=== PATIENT | female | born 1985 | race Two or more races ===

== ENCOUNTER 2018-04-16 13:15 | Inpatient (IN) | payer MEDICAID ==
[~2018-04-16] VITALS: Ht 157.5 cm; Wt 63.1 kg
[2018-04-16 13:46] LABS: Urine Bacteria FEW /hpf (None Seen); Urine Blood Negative /uL (Negative); Urine Mucus MODERATE (None Seen); Urine Specific Gravity 1.033 (1.001-1.035); Urine WBC 8 /hpf (0 - 5)
[2018-04-16 14:00] LABS: Basophils # (auto) 0 uL; Basophils % (auto) 0.2 % (0.0-2.0); Eosinophils # (auto) 0 uL; Eosinophils % (auto) 0.2 % (0.0-7.0); Hematocrit 42.6 % (36.0-46.0); Hemoglobin 14.5 g/dL (12.2-16.2); Lymphocytes % (auto) 20.7 % (10.0-50.0); Mean Corpuscular Hemoglobin 28.1 pg (28.0-32.0); Mean Corpuscular Volume 82.5 fL (80.0-100.0); Monocytes # (auto) 0.4 uL; Monocytes % (auto) 3.9 % (0.0-12.0); Neutrophils # (auto) 7.4 uL; Nucleated Red Blood Cells % 0.1 %; Platelet Count (auto) 258 10^3/uL (140-450); Red Blood Cells 5.16 10^6/uL (4.0-5.20); Red Cell Distribution Width 13.5 % (11.8-14.3); White Blood Cell 9.9 10^3/uL (4.4-10.8)
[2018-04-16 14:21] LABS: Albumin 3.6 g/dL (3.4-5.0); BUN/Creatinine Ratio 27.5; Bilirubin, Total 0.8 mg/dL (0.2-1.0); Calcium 8.6 mg/dL (8.5-10.1); Potassium 3.7 mmol/L (3.5-5.1); Total Protein 7.6 g/dL (6.4-8.2)
[2018-04-16 19:53] LABS: Amylase 41 U/L (25-115); Lipase 204 U/L (73-393)
[2018-04-16] MEDS ORDERED: SODIUM CHLORIDE 0.9% 1,000 ML IV ONE (20:00)
[2018-04-16] MEDS ORDERED: cefTRIAXone 1GM/10ml IVPUSH 10 ML IV ONE (21:15)
[2018-04-16 21:37] LABS: INR 1.02 (0.9-1.15); Partial Thromboplastin Time 28.4 sec (23.78-33.04); Prothrombin Time 10.9 sec (9.27-12.13)
[2018-04-16] MEDS ORDERED: MORPHINE SULFATE 4 MG/ML SYR/VIAL IV PRN (21:45)
[2018-04-16] MEDS ORDERED: ACETAMINOPHEN 325 MG TAB PO PRN (21:45)
[2018-04-16] MEDS ORDERED: ONDANSETRON HCL 4 MG/2 ML VIAL IV PRN (21:45)
[2018-04-16] MEDS ORDERED: TEMAZEPAM 15 MG CAP PO PRN (21:45)
[2018-04-16] MEDS: FAMOTIDINE 20 MG TAB PO SCH (22:43)
[2018-04-16 22:47] VITALS: BP 123/67
[2018-04-16 23:00] VITALS: BP 123/67
[2018-04-17] MEDS ORDERED: METH10TA6 PO (03:11)
[2018-04-17 05:03] VITALS: BP 103/54
[2018-04-17] MEDS: METHIMAZOLE 5 MG TAB PO SCH ×3 (06:33→22:13)
[2018-04-17 06:46] LABS: Basophils # (auto) 0 uL; Basophils % (auto) 0.2 % (0.0-2.0); Eosinophils # (auto) 0.1 uL; Eosinophils % (auto) 1.6 % (0.0-7.0); Hematocrit 39.6 % (36.0-46.0); Hemoglobin 13.6 g/dL (12.2-16.2); Lymphocytes # (auto) 2.7 uL; Lymphocytes % (auto) 44.5 % (10.0-50.0); Mean Corpuscular Hemoglobin 28.4 pg (28.0-32.0); Mean Corpuscular Hgb Conc. 34.3 g/dL (32.0-36.0); Monocytes # (auto) 0.7 uL; Monocytes % (auto) 10.5 % (0.0-12.0); Neutrophils # (auto) 2.7 uL; Neutrophils % (auto) 43.2 % (37.0-80.0); Nucleated Red Blood Cells % 0.1 %; Platelet Count (auto) 214 10^3/uL (140-450); Red Blood Cells 4.77 10^6/uL (4.0-5.20); Red Cell Distribution Width 13.6 % (11.8-14.3); White Blood Cell 6.2 10^3/uL (4.4-10.8)
[2018-04-17 07:02] LABS: Albumin 3.1 g/dL (3.4-5.0); Calcium 8.3 mg/dL (8.5-10.1); Potassium 3.6 mmol/L (3.5-5.1)
[2018-04-17 07:08] LABS: Bilirubin, Total 1.3 mg/dL (0.2-1.0); Total Protein 6.6 g/dL (6.4-8.2)
[2018-04-17 09:26] VITALS: BP 105/59
[2018-04-17] MEDS: ENOXAPARIN SOD 40 MG/0.4 ML SYRINGE SC SCH (10:00)
[2018-04-17] MEDS: FAMOTIDINE 20 MG TAB PO SCH ×2 (12:13→22:14)
[2018-04-17] MEDS: cefTRIAXone 1GM/10ml IVPUSH 10 ML IV SCH (12:13)
[2018-04-17 13:22] VITALS: BP 102/54
[2018-04-17 17:26] VITALS: BP 108/63
[2018-04-17 22:00] VITALS: BP 102/59
[2018-04-17] MEDS ORDERED: SOD CHL 0.9%/ KCL 20MEQ 1,000 ML IV SCH (22:00)
[2018-04-18] VITALS (54 sets, daily range): BP systolic 96–128; BP diastolic 53–87
[2018-04-18] MEDS: METHIMAZOLE 5 MG TAB PO SCH ×3 (05:54→22:36)
[2018-04-18] MEDS: cefTRIAXone 1GM/10ml IVPUSH 10 ML IV SCH (08:57)
[2018-04-18] MEDS ORDERED: ONDANSETRON HCL 4 MG/2 ML VIAL IV ONE (09:00)
[2018-04-18] MEDS ORDERED: LIDOCAINE 1% (LOCAL ANESTH.) PF 5ml SDV ONE (09:01)
[2018-04-18] MEDS ORDERED: SUCCINYLCHOLINE CHLORIDE 20 MG/ML 10ML VIAL IV ONE (09:01)
[2018-04-18] MEDS ORDERED: MIDAZOLAM HCL 1MG/1ML-2 ML VIAL ONE (09:02)
[2018-04-18] MEDS ORDERED: PROPOFOL 10 MG/ML 20 ML IV ONE (09:04)
[2018-04-18] MEDS ORDERED: fentaNYL CITRATE 100 MCG/2 ML VL ONE (09:12)
[2018-04-18] MEDS ORDERED: KETOROLAC TROMETH 30 MG/ML 1ML VIAL ONE (09:23)
[2018-04-18] MEDS ORDERED: ESMOLOL HCL 10 ML IV ONE (09:27)
[2018-04-18] MEDS ORDERED: LABETALOL HCL 5 MG/ML ML 20ML VIAL IV ONE (09:33)
[2018-04-18] MEDS ORDERED: HYDROCORTISONE SOD SUCC 100 MG/2ML INJ VIAL ONE (09:41)
[2018-04-18] MEDS ORDERED: NEOSTIGMINE 1 MG/ML INJ (10mg/10ML VIAL) ONE (09:47)
[2018-04-18] MEDS ORDERED: GLYCOPYRROLATE 0.2 MG/ML 1ML VIAL ONE (09:47)
[2018-04-18] MEDS: FAMOTIDINE 20 MG TAB PO SCH ×2 (10:00→22:36)
[2018-04-18] MEDS: ENOXAPARIN SOD 40 MG/0.4 ML SYRINGE SC SCH (10:00)
[2018-04-18] MEDS: MORPHINE SULFATE 4 MG/ML SYR/VIAL IV PRN ×4 (10:10→11:06)
[2018-04-18] MEDS ORDERED: ONDANSETRON HCL 4 MG/2 ML VIAL IV PRN (10:15)
[2018-04-18] MEDS: HYDROmorphone HCL 2 MG/ML VL IV PRN ×3 (14:15→23:52)
[2018-04-18] MEDS: ceFAZolin 1GM/100ML 100 ML IV SCH ×2 (14:20→22:37)
[2018-04-18 16:01] LABS: Basophils # (auto) 0 uL; Eosinophils # (auto) 0 uL; Hemoglobin 10.5 g/dL (12.2-16.2); Lymphocytes # (auto) 0.5 uL; Mean Corpuscular Hemoglobin 29.1 pg (28.0-32.0); Mean Corpuscular Hgb Conc. 34.8 g/dL (32.0-36.0); Mean Corpuscular Volume 83.6 fL (80.0-100.0); Monocytes # (auto) 0.1 uL; Monocytes % (auto) 1.4 % (0.0-12.0); Neutrophils # (auto) 9.3 uL; Neutrophils % (auto) 93.6 % (37.0-80.0); Platelet Count (auto) 249 10^3/uL (140-450); Red Blood Cells 3.59 10^6/uL (4.0-5.20); Red Cell Distribution Width 13.6 % (11.8-14.3)
[2018-04-18] MEDS: SOD CHL 0.45% 1,000 ML IV SCH (17:00)
[2018-04-18] MEDS: METOPROLOL TARTRATE 25 MG TAB PO SCH (20:59)
[2018-04-19] VITALS (76 sets, daily range): BP systolic 89–141; BP diastolic 38–78
[2018-04-19] MEDS: SOD CHL 0.45% 1,000 ML IV SCH ×5 (01:50→23:54)
[2018-04-19 02:13] LABS: Basophils # (auto) 0 uL; Basophils % (auto) 0.2 % (0.0-2.0); Eosinophils # (auto) 0 uL; Hematocrit 30.8 % (36.0-46.0); Lymphocytes # (auto) 1.2 uL; Lymphocytes % (auto) 13.1 % (10.0-50.0); Mean Corpuscular Hemoglobin 29.6 pg (28.0-32.0); Mean Corpuscular Hgb Conc. 35.6 g/dL (32.0-36.0); Mean Corpuscular Volume 83.2 fL (80.0-100.0); Monocytes # (auto) 0.3 uL; Neutrophils # (auto) 7.8 uL; Neutrophils % (auto) 83.7 % (37.0-80.0); Platelet Count (auto) 148 10^3/uL (140-450); Red Cell Distribution Width 13.8 % (11.8-14.3); White Blood Cell 9.4 10^3/uL (4.4-10.8)
[2018-04-19] MEDS: METHIMAZOLE 5 MG TAB PO SCH ×3 (05:41→22:25)
[2018-04-19] MEDS: ceFAZolin 1GM/100ML 100 ML IV SCH ×3 (05:41→22:30)
[2018-04-19 07:19] LABS: Basophils # (auto) 0 uL; Basophils % (auto) 0.2 % (0.0-2.0); Eosinophils # (auto) 0 uL; Eosinophils % (auto) 0.5 % (0.0-7.0); Hemoglobin 10.6 g/dL (12.2-16.2); Lymphocytes # (auto) 1.1 uL; Mean Corpuscular Hemoglobin 29.6 pg (28.0-32.0); Mean Corpuscular Hgb Conc. 35.4 g/dL (32.0-36.0); Mean Corpuscular Volume 83.6 fL (80.0-100.0); Monocytes # (auto) 0.3 uL; Monocytes % (auto) 4.1 % (0.0-12.0); Neutrophils # (auto) 4.9 uL; Neutrophils % (auto) 77.2 % (37.0-80.0); Platelet Count (auto) 145 10^3/uL (140-450); Red Blood Cells 3.58 10^6/uL (4.0-5.20); White Blood Cell 6.4 10^3/uL (4.4-10.8)
[2018-04-19 07:32] LABS: BUN/Creatinine Ratio 27.8; Calcium 7.6 mg/dL (8.5-10.1); Potassium 3.6 mmol/L (3.5-5.1)
[2018-04-19] MEDS: HYDROmorphone HCL 2 MG/ML VL IV PRN ×2 (08:55→19:04)
[2018-04-19] MEDS: METOPROLOL TARTRATE 25 MG TAB PO SCH ×2 (11:09→22:25)
[2018-04-19] MEDS: FAMOTIDINE 20 MG TAB PO SCH ×2 (11:09→22:25)
[2018-04-19] MEDS: ENOXAPARIN SOD 40 MG/0.4 ML SYRINGE SC SCH (11:10)
[2018-04-19 17:45] LABS: Hematocrit 29.1 % (36.0-46.0); Hemoglobin 10.2 g/dL (12.2-16.2)
[2018-04-19] MEDS: HYDROcodone-ACET 5/325MG TAB PO PRN (22:25)
[2018-04-20] VITALS (62 sets, daily range): BP systolic 81–125; BP diastolic 29–70
[2018-04-20] MEDS: HYDROmorphone HCL 2 MG/ML VL IV PRN ×3 (04:05→12:17)
[2018-04-20 04:09] LABS: Basophils # (auto) 0 uL; Basophils % (auto) 0.3 % (0.0-2.0); Eosinophils # (auto) 0.1 uL; Eosinophils % (auto) 2.8 % (0.0-7.0); Hematocrit 29.3 % (36.0-46.0); Hemoglobin 10.3 g/dL (12.2-16.2); Lymphocytes # (auto) 1.9 uL; Lymphocytes % (auto) 48.6 % (10.0-50.0); Mean Corpuscular Hemoglobin 29.8 pg (28.0-32.0); Mean Corpuscular Hgb Conc. 35.3 g/dL (32.0-36.0); Mean Corpuscular Volume 84.6 fL (80.0-100.0); Monocytes # (auto) 0.5 uL; Monocytes % (auto) 13.1 % (0.0-12.0); Neutrophils # (auto) 1.4 uL; Neutrophils % (auto) 35.2 % (37.0-80.0); Nucleated Red Blood Cells % 0.2 %; Platelet Count (auto) 132 10^3/uL (140-450); Red Blood Cells 3.46 10^6/uL (4.0-5.20); Red Cell Distribution Width 13.6 % (11.8-14.3); White Blood Cell 3.9 10^3/uL (4.4-10.8)
[2018-04-20 04:34] LABS: Bilirubin, Total 1.5 mg/dL (0.2-1.0); Calcium 7.8 mg/dL (8.5-10.1); Potassium 3.4 mmol/L (3.5-5.1)
[2018-04-20] MEDS: ceFAZolin 1GM/100ML 100 ML IV SCH (06:14)
[2018-04-20] MEDS: METHIMAZOLE 5 MG TAB PO SCH ×3 (06:14→22:00)
[2018-04-20] MEDS ORDERED: POTASSIUM CHL 10% (20 MEQ/15ML) 15ml ORAL SOLN PO ONE (08:30)
[2018-04-20] MEDS: ENOXAPARIN SOD 40 MG/0.4 ML SYRINGE SC SCH (09:20)
[2018-04-20] MEDS: SOD CHL 0.9%/ KCL 20MEQ 1,000 ML IV SCH ×2 (09:20→15:52)
[2018-04-20] MEDS: cefTRIAXone 1GM/10ml IVPUSH 10 ML IV SCH (09:21)
[2018-04-20] MEDS: FAMOTIDINE 20 MG TAB PO SCH ×2 (09:21→22:19)
[2018-04-20] MEDS: METOPROLOL TARTRATE 25 MG TAB PO SCH ×2 (09:21→22:19)
[2018-04-20] MEDS: HYDROcodone-ACET 5/325MG TAB PO PRN ×2 (13:46→20:12)
[2018-04-21] VITALS: BP 107/56
[2018-04-21] MEDS: HYDROcodone-ACET 5/325MG TAB PO PRN ×5 (02:19→22:23)
[2018-04-21 04:50] VITALS: BP 99/58
[2018-04-21] MEDS: METHIMAZOLE 5 MG TAB PO SCH ×3 (06:00→22:05)
[2018-04-21 08:00] VITALS: BP 113/65
[2018-04-21] MEDS: METOPROLOL TARTRATE 25 MG TAB PO SCH ×2 (10:00→23:55)
[2018-04-21] MEDS: FAMOTIDINE 20 MG TAB PO SCH ×2 (10:45→22:06)
[2018-04-21] MEDS: ENOXAPARIN SOD 40 MG/0.4 ML SYRINGE SC SCH (10:46)
[2018-04-21] MEDS: cefTRIAXone 1GM/10ml IVPUSH 10 ML IV SCH (10:47)
[2018-04-21 11:51] VITALS: BP 108/64
[2018-04-21 15:48] VITALS: BP 106/56
[2018-04-21 19:55] VITALS: BP 106/66
[2018-04-21] MEDS: SOD CHL 0.9%/ KCL 20MEQ 1,000 ML IV SCH ×2 (22:05→22:23)
[2018-04-22] MEDS: SOD CHL 0.9%/ KCL 20MEQ 1,000 ML IV SCH ×2 (00:30→09:54)
[2018-04-22] MEDS: HYDROcodone-ACET 5/325MG TAB PO PRN ×3 (04:30→18:47)
[2018-04-22 05:13] LABS: Basophils # (auto) 0 uL; Basophils % (auto) 0.3 % (0.0-2.0); Eosinophils # (auto) 0.2 uL; Eosinophils % (auto) 2.8 % (0.0-7.0); Hematocrit 33.4 % (36.0-46.0); Hemoglobin 11.5 g/dL (12.2-16.2); Lymphocytes # (auto) 2.4 uL; Lymphocytes % (auto) 35.5 % (10.0-50.0); Mean Corpuscular Hemoglobin 29.4 pg (28.0-32.0); Mean Corpuscular Hgb Conc. 34.4 g/dL (32.0-36.0); Mean Corpuscular Volume 85.6 fL (80.0-100.0); Monocytes # (auto) 0.6 uL; Monocytes % (auto) 9.3 % (0.0-12.0); Neutrophils # (auto) 3.5 uL; Neutrophils % (auto) 52.1 % (37.0-80.0); Nucleated Red Blood Cells % 0.1 %; Platelet Count (auto) 206 10^3/uL (140-450); Red Cell Distribution Width 13.8 % (11.8-14.3); White Blood Cell 6.7 10^3/uL (4.4-10.8)
[2018-04-22 05:30] LABS: Albumin 2.7 g/dL (3.4-5.0); BUN/Creatinine Ratio 26.9; Calcium 8.3 mg/dL (8.5-10.1); Potassium 3.9 mmol/L (3.5-5.1)
[2018-04-22 05:32] LABS: Bilirubin, Total 0.9 mg/dL (0.2-1.0); Total Protein 6.2 g/dL (6.4-8.2)
[2018-04-22] MEDS: METHIMAZOLE 5 MG TAB PO SCH ×3 (05:41→21:13)
[2018-04-22 08:50] VITALS: BP 104/60
[2018-04-22] MEDS: cefTRIAXone 1GM/10ml IVPUSH 10 ML IV SCH (09:53)
[2018-04-22] MEDS: ENOXAPARIN SOD 40 MG/0.4 ML SYRINGE SC SCH (09:53)
[2018-04-22] MEDS: FAMOTIDINE 20 MG TAB PO SCH ×2 (09:54→21:12)
[2018-04-22] MEDS: METOPROLOL TARTRATE 25 MG TAB PO SCH (09:55)
[2018-04-22 11:50] VITALS: BP 123/65
[2018-04-22] MEDS: PROPRANOLOL HCL 20 MG TAB PO SCH ×2 (14:18→21:12)
[2018-04-22 15:50] VITALS: BP 111/62
[2018-04-22] MEDS ORDERED: LORazepam 0.5 MG TAB PO PRN (16:00)
[2018-04-22] MEDS ORDERED: LORazepam 0.5 MG TAB PO ONE (16:00)
[2018-04-23] MEDS: HYDROcodone-ACET 5/325MG TAB PO PRN ×2 (04:39→09:24)
[2018-04-23 05:42] VITALS: BP 106/63
[2018-04-23] MEDS: METHIMAZOLE 5 MG TAB PO SCH ×3 (05:45→21:25)
[2018-04-23] MEDS: PROPRANOLOL HCL 20 MG TAB PO SCH ×3 (05:46→21:27)
[2018-04-23 07:22] LABS: Basophils # (auto) 0 uL; Basophils % (auto) 0.3 % (0.0-2.0); Eosinophils # (auto) 0.1 uL; Eosinophils % (auto) 1.4 % (0.0-7.0); Hematocrit 36.7 % (36.0-46.0); Hemoglobin 12.8 g/dL (12.2-16.2); Lymphocytes % (auto) 25.2 % (10.0-50.0); Mean Corpuscular Hemoglobin 29.5 pg (28.0-32.0); Mean Corpuscular Hgb Conc. 34.8 g/dL (32.0-36.0); Mean Corpuscular Volume 84.8 fL (80.0-100.0); Monocytes # (auto) 0.6 uL; Monocytes % (auto) 7.9 % (0.0-12.0); Neutrophils # (auto) 5.2 uL; Neutrophils % (auto) 65.2 % (37.0-80.0); Nucleated Red Blood Cells % 0.1 %; Platelet Count (auto) 259 10^3/uL (140-450); Red Blood Cells 4.32 10^6/uL (4.0-5.20); Red Cell Distribution Width 13.6 % (11.8-14.3); White Blood Cell 7.9 10^3/uL (4.4-10.8)
[2018-04-23 08:29] VITALS: BP 99/61
[2018-04-23] MEDS ORDERED: SODIUM CHLORIDE 0.9% 1,000 ML IV ONE (09:15)
[2018-04-23] MEDS: FAMOTIDINE 20 MG TAB PO SCH ×2 (09:23→21:27)
[2018-04-23] MEDS: cefTRIAXone 1GM/10ml IVPUSH 10 ML IV SCH (09:23)
[2018-04-23] MEDS ORDERED: ENOXAPARIN SOD 60 MG/0.6 ML SYRINGE SC SCH (10:00)
[2018-04-23] MEDS ORDERED: IOHEXOL 300 MG/ML 100ML BOTTLE IJ ONE (11:13)
[2018-04-23] MEDS: HYDROmorphone HCL 2 MG/ML VL IV PRN ×2 (12:14→19:59)
[2018-04-23 12:44] VITALS: BP 116/64
[2018-04-23] MEDS: SOD CHL 0.9%/ KCL 20MEQ 1,000 ML IV SCH (16:15)
[2018-04-23 17:12] VITALS: BP 147/69
[2018-04-23] MEDS ORDERED: GASTROGRAFIN 120 ML SOL ONE (17:14)
[2018-04-23 21:30] VITALS: BP 115/68
[2018-04-24] MEDS: HYDROmorphone HCL 2 MG/ML VL IV PRN (03:49)
[2018-04-24 04:59] VITALS: BP 107/58
[2018-04-24] MEDS: PROPRANOLOL HCL 20 MG TAB PO SCH ×3 (05:30→21:25)
[2018-04-24] MEDS: METHIMAZOLE 5 MG TAB PO SCH ×3 (05:30→23:42)
[2018-04-24] MEDS: SOD CHL 0.9%/ KCL 20MEQ 1,000 ML IV SCH (05:35)
[2018-04-24 08:14] VITALS: BP 102/63
[2018-04-24] MEDS: FAMOTIDINE 20 MG TAB PO SCH ×2 (09:38→21:13)
[2018-04-24] MEDS: cefTRIAXone 1GM/10ml IVPUSH 10 ML IV SCH (09:38)
[2018-04-24] MEDS ORDERED: ENOXAPARIN SOD 60 MG/0.6 ML SYRINGE SC SCH (10:00)
[2018-04-24 10:38] LABS: Hematocrit 39.3 % (36.0-46.0); Hemoglobin 13.6 g/dL (12.2-16.2)
[2018-04-24] MEDS ORDERED: HYDROcodone-ACET 5/325MG TAB PO PRN (12:00)
[2018-04-24] MEDS ORDERED: TEMAZEPAM 15 MG CAP PO PRN (12:00)
[2018-04-24 13:43] VITALS: BP 106/61
[2018-04-24] MEDS ORDERED: PRO20T PO (14:31)
[2018-04-24 17:11] VITALS: BP 115/66
[2018-04-24 21:30] VITALS: BP 101/58
[2018-04-25 05:00] VITALS: BP 104/54
[2018-04-25] MEDS: METHIMAZOLE 5 MG TAB PO SCH (05:25)
[2018-04-25] MEDS: PROPRANOLOL HCL 20 MG TAB PO SCH (05:25)
[2018-04-25 07:03] LABS: Basophils # (auto) 0 uL; Basophils % (auto) 0.3 % (0.0-2.0); Eosinophils # (auto) 0.1 uL; Eosinophils % (auto) 1.1 % (0.0-7.0); Hematocrit 35.2 % (36.0-46.0); Hemoglobin 12.1 g/dL (12.2-16.2); Lymphocytes # (auto) 2.1 uL; Lymphocytes % (auto) 25.5 % (10.0-50.0); Mean Corpuscular Hemoglobin 29.1 pg (28.0-32.0); Mean Corpuscular Hgb Conc. 34.3 g/dL (32.0-36.0); Mean Corpuscular Volume 84.9 fL (80.0-100.0); Monocytes # (auto) 0.7 uL; Monocytes % (auto) 8.7 % (0.0-12.0); Neutrophils # (auto) 5.3 uL; Neutrophils % (auto) 64.4 % (37.0-80.0); Nucleated Red Blood Cells % 0.1 %; Platelet Count (auto) 312 10^3/uL (140-450); Red Blood Cells 4.15 10^6/uL (4.0-5.20); Red Cell Distribution Width 13.8 % (11.8-14.3); White Blood Cell 8.2 10^3/uL (4.4-10.8)
[2018-04-25 07:24] LABS: Albumin 2.7 g/dL (3.4-5.0); Calcium 8.5 mg/dL (8.5-10.1); Potassium 3.4 mmol/L (3.5-5.1)
[2018-04-25 07:26] LABS: BUN/Creatinine Ratio 29.4
[2018-04-25 07:36] LABS: Total Protein 6.7 g/dL (6.4-8.2)
[2018-04-25 08:17] VITALS: BP 101/59
[2018-04-25] MEDS: FAMOTIDINE 20 MG TAB PO SCH (09:17)
[2018-04-25] MEDS: cefTRIAXone 1GM/10ml IVPUSH 10 ML IV SCH (09:17)
[2018-04-25] MEDS ORDERED: METH5TAB77 PO (10:15)
[2018-04-25 12:27] VITALS: BP 98/61
== END 2018-04-25 14:45 | disposition home or self-care (01) | DRG 263 ==
LOC: ER 13:15 → EAST 13:16 → ICU WEST 04-18 13:42 → DOU IN ICU 04-20 15:06 → TELE-WESTW 04-22 23:19
PROVIDERS: ADMIT Nurse Practitioner; ATTEND Internal Medicine
PROC: 30233L1 Transfusion of Nonautologous Fresh Plasma into Peripheral Vein, Percutaneous Approach (ICD-10-PCS; 2018-04-18)
PROC: 30233N1 Transfusion of Nonautologous Red Blood Cells into Peripheral Vein, Percutaneous Approach (ICD-10-PCS; 2018-04-18)
PROC: 30233K1 Transfusion of Nonautologous Frozen Plasma into Peripheral Vein, Percutaneous Approach (ICD-10-PCS; 2018-04-18)
PROC: 0FT44ZZ Resection of Gallbladder, Percutaneous Endoscopic Approach (ICD-10-PCS; principal; 2018-04-18 09:00)
DX: K80.00 Calculus of gallbladder with acute cholecystitis without obstruction (principal); E05.91 Thyrotoxicosis, unspecified with thyrotoxic crisis or storm; I11.9 Hypertensive heart disease without heart failure; D62 Acute posthemorrhagic anemia; E11.9 Type 2 diabetes mellitus without complications; D72.819 Decreased white blood cell count, unspecified; N39.0 Urinary tract infection, site not specified; K21.9 Gastro-esophageal reflux disease without esophagitis; G47.00 Insomnia, unspecified; E03.9 Hypothyroidism, unspecified; E87.6 Hypokalemia; K59.00 Constipation, unspecified; Z82.49 Family history of ischemic heart disease and other diseases of the circulatory system; Z83.3 Family history of diabetes mellitus
CPT/HCPCS: 36415; 71045; 74177; 74250; 76705; 78226; 80048; 80053; 81001; 81025; 82150; 82247; 82962; 83690; 83735; 84436; 84443; 84480; 85014; 85018; 85025; 85610; 85730; 86850; 86900; 86901; 86920; 87081; 93306; 94761; 96361; 96374; J0330; J0690; J1885; J2250; J2405; J2704